=== PATIENT | female | born 1995 | race Caucasian/White ===

== ENCOUNTER 2023-09-08 15:08 | Emergency (ER) | payer SELFPAY ==
[~2023-09-08] VITALS: Ht 170.2 cm; Wt 101.0 kg
[2023-09-08 15:17] VITALS: BP 125/78; PULSE 86; RESP 16; TEMP 98.2; O2SAT 99
[2023-09-08] MEDS ORDERED: NEOM10DR45 RIGHT EAR (15:23)
[2023-09-08] MEDS ORDERED: AMOX-580 PO (15:23)
== END 2023-09-08 15:36 | disposition home or self-care (01) ==
LOC: ER 15:09
DX: H60.91 Unspecified otitis externa, right ear (principal); H66.91 Otitis media, unspecified, right ear; Z79.2 Long term (current) use of antibiotics
CPT/HCPCS: 99283